=== PATIENT | female | born 1995 | race Two or more races ===

== ENCOUNTER 2019-08-23 03:14 | Emergency (ER) | payer MEDICAID | END 2019-08-23 03:38 | disposition left against medical advice (07) | LOC: ER 03:15 | DX: R50.9 Fever, unspecified (principal); Z53.21 Procedure and treatment not carried out due to patient leaving prior to being seen by health care provider ==

== ENCOUNTER 2020-02-11 11:50 | Observation (INO) | payer MEDICAID ==
[2020-02-11] MEDS ORDERED: PREN-96 PO (12:21)
== END 2020-02-11 13:50 | disposition home or self-care (01) ==
LOC: LDRP 11:50
PROVIDERS: ADMIT Obstetrics & Gynecology; ATTEND Obstetrics & Gynecology
DX: O42.92 Full-term premature rupture of membranes, unspecified as to length of time between rupture and onset of labor (principal); O12.03 Gestational edema, third trimester; O26.893 Other specified pregnancy related conditions, third trimester; N89.8 Other specified noninflammatory disorders of vagina; Z3A.39 39 weeks gestation of pregnancy
CPT/HCPCS: 59025; 76815; 81002; 84112; G0378; Q0114

== ENCOUNTER 2020-02-14 09:53 | Observation (INO) | payer MEDICAID ==
[~2020-02-14 09:53] MED LIST: PREN-96 PO
== END 2020-02-14 11:20 | disposition home or self-care (01) ==
LOC: LDRP 09:53
PROVIDERS: ADMIT Specialist; ATTEND Specialist
DX: O48.0 Post-term pregnancy (principal); Z3A.40 40 weeks gestation of pregnancy
CPT/HCPCS: 59025; 76818; 81002; G0378

== ENCOUNTER 2020-02-16 11:00 | Observation (INO) | payer MEDICAID | END 2020-02-16 12:31 | disposition home or self-care (01) | LOC: LDRP 11:00 | PROVIDERS: ADMIT Specialist; ATTEND Specialist | DX: O48.0 Post-term pregnancy (principal); Z3A.40 40 weeks gestation of pregnancy | CPT/HCPCS: 59025; 76818; 81002; G0378 ==

== ENCOUNTER 2020-02-18 15:17 | Observation (INO) | payer MEDICAID | END 2020-02-18 16:35 | disposition home or self-care (01) | LOC: LDRP 15:17 | PROVIDERS: ADMIT Obstetrics & Gynecology; ATTEND Obstetrics & Gynecology | DX: O48.0 Post-term pregnancy (principal); Z20.828 Contact with and (suspected) exposure to other viral communicable diseases; Z3A.40 40 weeks gestation of pregnancy | CPT/HCPCS: 59025; 76818; 81002; G0378; U0003 ==

== ENCOUNTER 2020-02-19 18:53 | Inpatient (IN) | payer MEDICAID ==
[~2020-02-19] VITALS: Ht 160 cm; Wt 90.7 kg
[2020-02-19] MEDS: LACTATED RINGER'S 1,000 ML IV SCH (19:04)
[2020-02-19] MEDS ORDERED: LACT. RINGERS/OXYTOCIN 20UNITS 1,000 ML IV SCH (19:04)
[2020-02-19] MEDS ORDERED: PENICILLIN G POT 5MIL/D5 50ML 50 ML IV ONE (19:15)
[2020-02-19] MEDS ORDERED: DERMOPLAST 60ML BOTTLE TOP PRN (19:15)
[2020-02-19] MEDS ORDERED: PHISODERM TOP SOLN 240ML BTL TOP PRN (19:15)
[2020-02-19] MEDS ORDERED: WITCH HAZEL-GLYCERIN PAD TOP PRN (19:15)
[2020-02-19] MEDS ORDERED: METHYLERGONOVINE MALEATE 0.2 MG/ML AMP IM PRN (19:15)
[2020-02-19] MEDS ORDERED: LIDOCAINE 2%HCL (LOCAL ANESTH.) INJ 20ML MDV IJ PRN (19:15)
[2020-02-19] MEDS ORDERED: miSOPROStol 50 MCG per PRE-CUT 1/2 TAB ONE (20:16)
[2020-02-19 20:47] LABS: Basophils # (auto) 0 10 ^3/uL (0-0.2); Basophils % (auto) 0.5 % (0.0-2.0); Eosinophils # (auto) 0.1 10 ^3/uL (0-0.8); Eosinophils % (auto) 0.9 % (0.0-7.0); Hematocrit 37.9 % (36.0-46.0); Hemoglobin 12.5 g/dL (12.2-16.2); Lymphocytes # (auto) 1.6 10 ^3/uL (0.4-5.4); Lymphocytes % (auto) 20.1 % (10.0-50.0); Mean Corpuscular Hemoglobin 28.1 pg (28.0-32.0); Mean Corpuscular Hgb Conc. 32.9 g/dL (32.0-36.0); Mean Corpuscular Volume 85.4 fL (80.0-100.0); Monocytes # (auto) 0.5 10 ^3/uL (0-1.3); Monocytes % (auto) 6.5 % (0.0-12.0); Neutrophils # (auto) 5.6 10 ^3/uL (1.6-8.6); Nucleated Red Blood Cells % 0.1 %; Platelet Count (auto) 210 10^3/uL (140-450); Red Blood Cells 4.44 10^6/uL (4.0-5.20); Red Cell Distribution Width 18.8 % (11.8-14.3); White Blood Cell 7.8 10^3/uL (4.4-10.8)
[2020-02-19 20:48] LABS: Albumin 2.4 g/dL (3.4-5.0); BUN/Creatinine Ratio 11.4; Calcium 8.2 mg/dL (8.5-10.1); Potassium 3.7 mmol/L (3.5-5.1)
[2020-02-19 20:49] LABS: Alcohol, Urine < 3.0 mg/dL (0-10); Amphetamine Screen, Urine NEGATIVE (NEGATIVE); Barbiturate Scree,Urine NEGATIVE (NEGATIVE); Benzodiazephine Screen, Urine NEGATIVE (NEGATIVE); Cannabinoid Screen, Urine NEGATIVE (NEGATIVE); Cocaine Screen, Urine NEGATIVE (NEGATIVE); Opiate Scree,Urine NEGATIVE (NEGATIVE); Phencyclidine Screen, Urine NEGATIVE (NEGATIVE)
[2020-02-19 20:51] LABS: Bilirubin, Total 0.2 mg/dL (0.2-1.0)
[2020-02-19 20:52] LABS: INR 0.92 (0.9-1.15); Partial Thromboplastin Time 29.6 sec (23.0-31.2)
[2020-02-19 21:04] VITALS: BP 116/68
[2020-02-19 21:16] LABS: Urine Bacteria FEW /hpf (None Seen); Urine Blood Negative /uL (Negative); Urine Mucus FEW (None Seen); Urine Specific Gravity 1.018 (1.001-1.035); Urine WBC <1 /hpf (0 - 5)
[2020-02-20] MEDS: miSOPROStol 50 MCG per PRE-CUT 1/2 TAB PO PRN ×5 (00:01→20:44)
[2020-02-20] MEDS: PENICILLIN G POTASSIUM 2,500,000 UNITS in D5W 5% 50 ML IV SCH ×7 (00:03→23:56)
[2020-02-20] MEDS: LACTATED RINGER'S 1,000 ML IV SCH ×2 (02:46→14:23)
[2020-02-21] MEDS: LACTATED RINGER'S 1,000 ML IV SCH ×2 (00:40→11:00)
[2020-02-21] MEDS: miSOPROStol 50 MCG per PRE-CUT 1/2 TAB PO PRN (00:55)
[2020-02-21] MEDS: PENICILLIN G POTASSIUM 2,500,000 UNITS in D5W 5% 50 ML IV SCH ×3 (04:00→12:20)
[2020-02-21 06:07] LABS: RPR Non Reactive (Non Reactive)
[2020-02-21] MEDS ORDERED: ONDANSETRON HCL 4 MG/2 ML VIAL IV PRN ×5 (09:15→17:30)
[2020-02-21] MEDS ORDERED: NALOXONE HCL 0.4 MG/ML VIAL IV ONE ×2 (10:30→11:30)
[2020-02-21] MEDS ORDERED: fentaNYL 400mCg/200ml W ROPIVA 200 ML EPI SCH ×2 (10:30→11:30)
[2020-02-21] MEDS ORDERED: fentaNYL CITRATE 100 MCG/2 ML VL IV ONE ×2 (10:30→11:30)
[2020-02-21] MEDS ORDERED: LIDOCAINE HCL 2 %PF INJ 10ML AMP IJ ONE ×3 (10:30→15:52)
[2020-02-21] MEDS ORDERED: ePHEDrine SULFATE 50 MG/ML AMP IV ONE ×2 (10:30→11:30)
[2020-02-21] MEDS ORDERED: LACTATED RINGER'S 1,000 ML IV ONE (11:28)
[2020-02-21] MEDS ORDERED: MORPHINE SULF(PF) 0.5MG/ML 10ML VIAL ONE (15:52)
[2020-02-21] MEDS ORDERED: FAMOTIDINE (10MG/ML) 2ML VL IV ONE (15:53)
[2020-02-21] MEDS ORDERED: fentaNYL CITRATE 100 MCG/2 ML VL ONE (15:57)
[2020-02-21] MEDS ORDERED: ONDANSETRON HCL 4 MG/2 ML VIAL ONE (15:58)
[2020-02-21] MEDS ORDERED: oxyTOCIN 10 UNIT/ML 10ML VIAL ONE (15:58)
[2020-02-21] MEDS ORDERED: GLYCOPYRROLATE 0.2 MG/ML 1ML VIAL ONE (15:58)
[2020-02-21] MEDS ORDERED: TETRACAINE 1% INJ 2 ML VIAL IJ ONE (16:01)
[2020-02-21] MEDS ORDERED: MEPERIDINE HCL (25 MG/ML) 1ML VIAL ONE (16:49)
[2020-02-21] MEDS ORDERED: LACT. RINGERS/OXYTOCIN 20UNITS 1,000 ML IV ONE (16:52)
[2020-02-21] MEDS ORDERED: MORPHINE SULFATE 4 MG/ML SYR/VIAL IV PRN ×2 (17:00)
[2020-02-21] MEDS ORDERED: KETOROLAC TROMETH 30 MG/ML 1ML VIAL IV PRN (17:00)
[2020-02-21] MEDS ORDERED: ePHEDrine SULFATE 50 MG/ML AMP IV PRN ×2 (17:00→17:30)
[2020-02-21] MEDS ORDERED: ceFAZolin 1GM/50ML 50 ML IV SCH ×2 (17:00)
[2020-02-21] MEDS ORDERED: GUM (CHEWING) 1 GUM CHEW CHEW ONE (17:00)
[2020-02-21] MEDS ORDERED: diphenhdrAMINE HCL 50 MG/1 ML VL IV PRN (17:30)
[2020-02-21] MEDS ORDERED: NALOXONE HCL 0.4 MG/ML VIAL IV PRN (17:30)
[2020-02-21] MEDS ORDERED: DexAMETHasone SOD PHOS 10MG/1ML VIAL INJ IV PRN (17:30)
[2020-02-21] MEDS ORDERED: NALBUPHINE HCL 10 MG/1ml INJECTION SUBCUT ONE (17:30)
[2020-02-21 18:25] VITALS: BP 97/81
[2020-02-21 19:00] VITALS: BP 95/57
[2020-02-21 19:13] LABS: Basophils # (auto) 0 10 ^3/uL (0-0.2); Basophils % (auto) 0.2 % (0.0-2.0); Eosinophils # (auto) 0 10 ^3/uL (0-0.8); Hematocrit 37.1 % (36.0-46.0); Hemoglobin 12.2 g/dL (12.2-16.2); Lymphocytes % (auto) 6.3 % (10.0-50.0); Mean Corpuscular Hemoglobin 28.1 pg (28.0-32.0); Mean Corpuscular Hgb Conc. 32.8 g/dL (32.0-36.0); Mean Corpuscular Volume 85.6 fL (80.0-100.0); Monocytes % (auto) 6.5 % (0.0-12.0); Neutrophils # (auto) 13.4 10 ^3/uL (1.6-8.6); Platelet Count (auto) 202 10^3/uL (140-450); Red Blood Cells 4.33 10^6/uL (4.0-5.20); Red Cell Distribution Width 18.6 % (11.8-14.3); White Blood Cell 15.4 10^3/uL (4.4-10.8)
[2020-02-21 20:00] VITALS: BP 100/57
[2020-02-21 21:00] VITALS: BP 110/69
[2020-02-21 22:00] VITALS: BP 107/63
[2020-02-21 22:36] LABS: Basophils # (auto) 0.1 10 ^3/uL (0-0.2); Basophils % (auto) 0.5 % (0.0-2.0); Eosinophils # (auto) 0 10 ^3/uL (0-0.8); Eosinophils % (auto) 0.1 % (0.0-7.0); Hemoglobin 11.7 g/dL (12.2-16.2); Lymphocytes # (auto) 1.3 10 ^3/uL (0.4-5.4); Lymphocytes % (auto) 8.9 % (10.0-50.0); Mean Corpuscular Hemoglobin 28.5 pg (28.0-32.0); Mean Corpuscular Hgb Conc. 33.3 g/dL (32.0-36.0); Mean Corpuscular Volume 85.5 fL (80.0-100.0); Monocytes # (auto) 0.9 10 ^3/uL (0-1.3); Monocytes % (auto) 6.2 % (0.0-12.0); Neutrophils # (auto) 12.6 10 ^3/uL (1.6-8.6); Neutrophils % (auto) 84.3 % (37.0-80.0); Platelet Count (auto) 201 10^3/uL (140-450); Red Blood Cells 4.09 10^6/uL (4.0-5.20); Red Cell Distribution Width 18.6 % (11.8-14.3); White Blood Cell 14.9 10^3/uL (4.4-10.8)
[2020-02-21 23:00] VITALS: BP 107/51
[2020-02-21] MEDS ORDERED: ACETAMINOPHEN IV 1000 MG/100ML (10MG/ML) IV ONE (23:45)
[2020-02-22] VITALS (17 sets, daily range): BP systolic 93–120; BP diastolic 43–74
[2020-02-22] MEDS: ceFAZolin 1GM/50ML 50 ML IV SCH ×3 (00:15→16:30)
[2020-02-22] MEDS ORDERED: PROMETHAZINE HCL 25 MG/ML 1ML IV PRN (01:00)
[2020-02-22] MEDS ORDERED: BUTORPHANOL TARTRATE 2 MG/1 ML VIAL IV PRN (01:00)
[2020-02-22] MEDS ORDERED: KETOROLAC TROMETH 30 MG/ML 1ML VIAL IV ONE ×2 (03:00→12:45)
[2020-02-22 07:08] LABS: Basophils # (auto) 0 10 ^3/uL (0-0.2); Basophils % (auto) 0.2 % (0.0-2.0); Eosinophils # (auto) 0 10 ^3/uL (0-0.8); Eosinophils % (auto) 0.3 % (0.0-7.0); Hematocrit 32.2 % (36.0-46.0); Hemoglobin 10.8 g/dL (12.2-16.2); Lymphocytes # (auto) 1.6 10 ^3/uL (0.4-5.4); Lymphocytes % (auto) 13.2 % (10.0-50.0); Mean Corpuscular Hemoglobin 28.9 pg (28.0-32.0); Mean Corpuscular Hgb Conc. 33.5 g/dL (32.0-36.0); Mean Corpuscular Volume 86.2 fL (80.0-100.0); Monocytes # (auto) 0.8 10 ^3/uL (0-1.3); Monocytes % (auto) 6.7 % (0.0-12.0); Neutrophils # (auto) 9.9 10 ^3/uL (1.6-8.6); Neutrophils % (auto) 79.6 % (37.0-80.0); Platelet Count (auto) 174 10^3/uL (140-450); Red Blood Cells 3.73 10^6/uL (4.0-5.20); Red Cell Distribution Width 18.5 % (11.8-14.3); White Blood Cell 12.4 10^3/uL (4.4-10.8)
[2020-02-22] MEDS: LACTATED RINGER'S 1,000 ML IV SCH (10:31)
[2020-02-22] MEDS ORDERED: LACTATED RINGER'S 1,000 ML IV SCH (17:41)
[2020-02-22] MEDS ORDERED: BISACODYL 10 MG RECT SUPP PR PRN (17:45)
[2020-02-22] MEDS: SIMETHICONE 80 MG CHEWABLE TABLET PO SCH ×2 (18:14→22:03)
[2020-02-22] MEDS: HYDROcodone-ACET 5/325MG TAB PO PRN (18:15)
[2020-02-22] MEDS ORDERED: DOCUSATE SOD 100 MG CAP PO SCH (22:00)
[2020-02-22] MEDS: IBUPROFEN 800 MG TAB PO PRN (23:08)
[2020-02-23 03:15] VITALS: BP 109/63
[2020-02-23] MEDS: HYDROcodone-ACET 5/325MG TAB PO PRN ×4 (03:17→22:10)
[2020-02-23] MEDS: SIMETHICONE 80 MG CHEWABLE TABLET PO SCH ×4 (05:31→22:09)
[2020-02-23 07:00] VITALS: BP 125/69
[2020-02-23] MEDS: IBUPROFEN 800 MG TAB PO PRN ×2 (07:15→18:22)
[2020-02-23] MEDS ORDERED: DOCUSATE CALCIUM 240 MG CAP PO SCH (10:00)
[2020-02-23 11:00] VITALS: BP 115/62
[2020-02-23 15:00] VITALS: BP 100/63
[2020-02-23 19:30] VITALS: BP 106/71
[2020-02-23 22:30] VITALS: BP 119/75
[2020-02-24 03:00] VITALS: BP 116/72
[2020-02-24] MEDS: IBUPROFEN 800 MG TAB PO PRN (05:26)
[2020-02-24] MEDS: SIMETHICONE 80 MG CHEWABLE TABLET PO SCH (05:30)
[2020-02-24 07:15] VITALS: BP 107/65
== END 2020-02-24 10:40 | disposition home or self-care (01) | DRG 540 ==
LOC: LDRP 18:53
PROVIDERS: ADMIT Obstetrics & Gynecology; ATTEND Obstetrics & Gynecology
PROC: 3E033VJ Introduction of Other Hormone into Peripheral Vein, Percutaneous Approach (ICD-10-PCS; 2020-02-20)
PROC: 10H07YZ Insertion of Other Device into Products of Conception, Via Natural or Artificial Opening (ICD-10-PCS; 2020-02-21)
PROC: 3E0R3BZ Introduction of Anesthetic Agent into Spinal Canal, Percutaneous Approach (ICD-10-PCS; 2020-02-21)
PROC: 00HU33Z Insertion of Infusion Device into Spinal Canal, Percutaneous Approach (ICD-10-PCS; 2020-02-21)
PROC: 10D00Z1 Extraction of Products of Conception, Low, Open Approach (ICD-10-PCS; principal; 2020-02-21 16:06)
DX: O48.0 Post-term pregnancy (principal); O77.0 Labor and delivery complicated by meconium in amniotic fluid; O33.9 Maternal care for disproportion, unspecified; O69.81X0 Labor and delivery complicated by cord around neck, without compression, not applicable or unspecified; O99.824 Streptococcus B carrier state complicating childbirth; Z37.0 Single live birth; Z3A.40 40 weeks gestation of pregnancy; Z90.49 Acquired absence of other specified parts of digestive tract; O62.0 Primary inadequate contractions
CPT/HCPCS: 36415; 59025; 62282; 80053; 80307; 81001; 81002; 84112; 85025; 85610; 85730; 86592; 86850; 86900; 86901; 94760; 96360; 96361; G0378; J0131; J0690; J1885; J2405; J2540; J2590; J3490; J7060